=== PATIENT | male | born 1970 | race Caucasian/White ===

== ENCOUNTER 2021-02-23 16:05 | Inpatient (IN) | payer OTHER ==
[2021-02-23] MEDS ORDERED: METOPROLOL TARTRATE 50 MG TABLET (FP) PO ONE (17:54)
[2021-02-23] MEDS ORDERED: diazePAM 5 MG TABLET PO ONE (17:58)
[2021-02-23] MEDS ORDERED: LORazepam 2 MG/ML SDV VIAL IM ONE (18:01)
[2021-02-23] MEDS ORDERED: LORazepam 2 MG/ML SDV VIAL ONE (18:09)
[2021-02-23] MEDS ORDERED: ACETAMINOPHEN 325 MG TABLET (FP) PO PRN ×2 (18:13)
[2021-02-23] MEDS ORDERED: MAG HYDROX/AL HYDROX/SIMETH 30 ML UNIT-DOSE CUP PO PRN (18:13)
[2021-02-23] MEDS ORDERED: MENTHOL/PHENOL 1 EACH UD MM PRN (18:13)
[2021-02-23] MEDS ORDERED: MAGNESIUM HYDROX 2400MG/30ML ORAL SUSPENSION 30 ML CUP PO PRN (18:13)
[2021-02-23] MEDS ORDERED: ONDANSETRON *ODT* 4 MG TABLET SL PRN (18:13)
[2021-02-23] MEDS ORDERED: MAGNESIUM CITRATE 300 ML BOTTLE PO PRN (18:13)
[2021-02-23] MEDS ORDERED: IBUPROFEN 400 MG TABLET (FP) PO PRN (18:13)
[2021-02-23 18:19] VITALS: BMI 26.3
[2021-02-23] MEDS: THIAMINE HCL 100 MG TABLET (FP) PO SCH (22:55)
[2021-02-23] MEDS: MELATONIN 5 MG TABLETS PO SCH (22:55)
[2021-02-23] MEDS ORDERED: diazePAM 5 MG TABLET PO SCH (23:00)
[2021-02-23] MEDS: diazePAM 5 MG TABLET PO SCH (23:18)
[2021-02-24] MEDS: diazePAM 5 MG TABLET PO PRN ×2 (03:43→13:01)
[2021-02-24] MEDS: hydrOXYzine PAMOATE 25 MG CAPSULE (FP) PO PRN (03:46)
[2021-02-24] MEDS: METHOCARBAMOL 500 MG TABLET PO PRN (03:46)
[2021-02-24] MEDS: diazePAM 5 MG TABLET PO SCH ×4 (05:31→23:00)
[2021-02-24] MEDS ORDERED: cloNIDine HCL 0.1 MG TABLET PO ONE (09:46)
[2021-02-24 09:52] LABS: ALBUMIN 3.3 g/dl (3.4-5.0); BLOOD UREA NITROGEN 8.6 mg/dL (7-18); CALCIUM 8.5 mg/dL (8.5-10.1)
[2021-02-24 09:55] LABS: CREATININE 0.6 mg/dL (0.55-1.3)
[2021-02-24 09:57] LABS: BILIRUBIN,TOTAL 1.5 mg/dL (0.2-1); TOT PROT 6.5 g/dl (6.4-8.2)
[2021-02-24 10:01] LABS: HEMATOCRIT 38.7 % (35.4-49); HEMOGLOBIN 13.6 GM/dL (11.7-16.9); MCH 33.8 pg (25.7-33.7); MEAN CELL VOLUME 96.5 fl (80-96); MEAN PLT VOLUME 8.5 fl (7.5-11.1); PLATELET COUNT 95 10^3/uL (134-434); RBC 4.01 M/mm3 (4.00-5.60); RDW 14.8 % (11.9-15.9); WHITE BLOOD COUNT 5.3 K/mm3 (4.0-10.0)
[2021-02-24] MEDS: PRENATAL VITAMINS W/ FOLIC ACID TABLET (FP) PO SCH (10:17)
[2021-02-24] MEDS ORDERED: POTASSIUM CHLORIDE ORAL LIQUID 20 MEQ/15 ML PO ONE (12:00)
[2021-02-24] MEDS: BISMUTH SUBSALICYLATE 524 MG/30 ML PO PRN (13:50)
[2021-02-24] MEDS: POTASSIUM CHLORIDE ORAL LIQUID 20 MEQ/15 ML PO SCH (22:59)
[2021-02-24] MEDS: THIAMINE HCL 100 MG TABLET (FP) PO SCH (23:00)
[2021-02-24] MEDS: MELATONIN 5 MG TABLETS PO SCH (23:00)
[2021-02-25] MEDS: BISMUTH SUBSALICYLATE 524 MG/30 ML PO PRN ×3 (03:43→08:58)
[2021-02-25] MEDS ORDERED: diazePAM 5 MG TABLET PO SCH (06:00)
[2021-02-25] MEDS: diazePAM 5 MG TABLET PO SCH ×3 (06:13→22:51)
[2021-02-25] MEDS: PRENATAL VITAMINS W/ FOLIC ACID TABLET (FP) PO SCH (09:02)
[2021-02-25] MEDS: POTASSIUM CHLORIDE ORAL LIQUID 20 MEQ/15 ML PO SCH ×2 (09:02→22:51)
[2021-02-25 10:27] LABS: INR 0.88 (0.83-1.09); PROTHROMBIN TIME (PATIENT) 10.8 SEC (9.7-13.0)
[2021-02-25 10:59] LABS: CHLORIDE 103 mmol/L (98-107); SODIUM 138 mmol/L (136-145)
[2021-02-25] MEDS: diazePAM 5 MG TABLET PO PRN ×2 (11:03→18:43)
[2021-02-25 11:05] LABS: ALBUMIN 2.9 g/dl (3.4-5.0); CALCIUM 8.6 mg/dL (8.5-10.1); GLUCOSE,RANDOM 102 mg/dL (74-106)
[2021-02-25 11:06] LABS: CO2 31 mmol/L (21-32)
[2021-02-25 11:08] LABS: CREATININE 0.7 mg/dL (0.55-1.3); SGOT/AST 73 U/L (15-37); SGPT/ALT 49 U/L (13-61)
[2021-02-25 11:09] LABS: BILIRUBIN,TOTAL 1.2 mg/dL (0.2-1)
[2021-02-25 11:10] LABS: ALK PHOS 88 U/L (45-117)
[2021-02-25 11:18] LABS: ANION GAP 5 MMOL/L (8-16)
[2021-02-25] MEDS ORDERED: cloNIDine HCL 0.1 MG TABLET PO ONE (14:11)
[2021-02-25] MEDS: NICOTINE POLACRILEX 2 MG GUM BUC PRN (19:32)
[2021-02-25] MEDS: THIAMINE HCL 100 MG TABLET (FP) PO SCH (22:50)
[2021-02-25] MEDS: MELATONIN 5 MG TABLETS PO SCH (22:50)
[2021-02-26] MEDS ORDERED: diazePAM 5 MG TABLET PO SCH (06:00)
[2021-02-26] MEDS: diazePAM 5 MG TABLET PO SCH ×2 (06:41→17:54)
[2021-02-26] MEDS: diazePAM 5 MG TABLET PO PRN ×2 (09:23→14:03)
[2021-02-26] MEDS: PRENATAL VITAMINS W/ FOLIC ACID TABLET (FP) PO SCH (10:21)
[2021-02-26] MEDS: NICOTINE 14 MG/24 HOURS TOPICAL PATCH TD SCH (10:21)
[2021-02-26] MEDS: METHOCARBAMOL 500 MG TABLET PO PRN (13:01)
[2021-02-26] MEDS: NICOTINE POLACRILEX 2 MG GUM BUC PRN ×2 (13:04→17:56)
[2021-02-26] MEDS: BISMUTH SUBSALICYLATE 524 MG/30 ML PO PRN ×2 (13:04→18:03)
[2021-02-26] MEDS ORDERED: PT OWN MED DRAWER 7, Y5N ONE (21:40)
[2021-02-26] MEDS: THIAMINE HCL 100 MG TABLET (FP) PO SCH (22:24)
[2021-02-26] MEDS: hydrOXYzine PAMOATE 25 MG CAPSULE (FP) PO PRN (22:24)
[2021-02-26] MEDS: MELATONIN 5 MG TABLETS PO SCH (22:24)
[2021-02-26] MEDS ORDERED: cloNIDine HCL 0.1 MG TABLET PO ONE (23:10)
[2021-02-27] MEDS ORDERED: diazePAM 5 MG TABLET PO ONE (06:00)
[2021-02-27] MEDS: BISMUTH SUBSALICYLATE 524 MG/30 ML PO PRN (06:39)
[2021-02-27] MEDS: NICOTINE POLACRILEX 2 MG GUM BUC PRN (07:51)
[2021-02-27 09:41] VITALS: BP 137/90; PULSE 93; TEMP 97.3
[2021-02-27] MEDS: NICOTINE 14 MG/24 HOURS TOPICAL PATCH TD SCH (10:18)
[2021-02-27] MEDS: PRENATAL VITAMINS W/ FOLIC ACID TABLET (FP) PO SCH (10:18)
== END 2021-02-27 10:29 | disposition home or self-care (01) | DRG 775 ==
LOC: YASAS 16:05 → Y3N 18:18
PROVIDERS: ADMIT Allergy & Immunology; ATTEND Allergy & Immunology
PROC: HZ2ZZZZ Detoxification Services for Substance Abuse Treatment (ICD-10-PCS; principal; 2021-02-23)
DX: F10.230 Alcohol dependence with withdrawal, uncomplicated (principal); F10.220 Alcohol dependence with intoxication, uncomplicated; E87.6 Hypokalemia; R74.01 Elevation of levels of liver transaminase levels; Z87.891 Personal history of nicotine dependence
CPT/HCPCS: 36415; 80053; 84132; 85027; 85610; 86780; C9803; J0735; U0003; U0005